=== PATIENT | male | born 2000 | race Caucasian/White ===

== ENCOUNTER 2023-09-21 20:46 | Emergency (ER) | payer OTHER ==
--- NOTE | 2023-09-21 21:19 | ED Physician Documentation ---
PD HPI HEADACHE - Stated complaint Stated Complaint: HEAD PRESSURE/BLURRY VISION - Chief complaint Chief Complaint: General - History obtained from History obtained from: Patient - Additional information Additional information: HPI from patient. Patient complains of approximately 2 weeks of waxing and waning bilateral headache. At times, this has been associated with blurry vision (bilateral). He denies nausea, vomiting. He has not had headaches like this before. He denies any injury. There is a partial component of phonophobia but denies photophobia. He has taken Tylenol and ibuprofen with intermittent/transient improvement. He has not seen his PCP for these headaches. Denies fever. Denies weakness, numbness. Review of Systems Constitutional: denies: Fever, Chills, Sweats Eyes: reports: Decreased vision (intermittent blurry vision). denies: Loss of vision Musculoskeletal: denies: Neck pain Neurologic: reports: Headache. denies: Generalized weakness, Focal weakness, Numbness, Head injury PD PAST MEDICAL HISTORY - Past Medical History Past Medical History: No Cardiovascular: None Respiratory: None Neuro: None Endocrine/Autoimmune: None GI: None : None HEENT: None Psych: None Musculoskeletal: None Derm: None - Past Surgical History Past Surgical History: No - Allergies Allergies/Adverse Reactions: Allergies Allergy/AdvReac Type Severity Reaction Status Date / Time No Known Drug Allergies Allergy Verified 09/21/23 20:50 - Social History Does the pt smoke?: No Smoking Status: Never smoker Does the pt drink ETOH?: No Does the pt have substance abuse?: No - Immunizations Immunizations are current?: Yes - POLST Patient has POLST: No PD ED PE NORMAL - Vitals Vital signs reviewed: Yes - General General: Alert and oriented X 3, No acute distress, Well developed/nourished - HEENT HEENT: Atraumatic, PERRL, EOMI - Neck Neck: Supple, no meningeal sign - Cardiac Cardiac: RRR, No murmur - Respiratory Respiratory: No respiratory distress, Clear bilaterally - Neuro Neuro: Alert and oriented X 3, 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 He is in NAD throughout ED stay. No "red flag" signs/symptoms (such as fever, weakness, numbness, AMS). Further emergent testing is not indicated at this time. Results of CTH d/w patient. I advised him to follow up with PCP for reevaluation. Return precautions are discussed. We discussed options for analgesia; he is given 100mg tramadol prior to d/c but declines Rx. Patient is being driven home by friend. Departure - Departure Disposition: Home, Self Care Clinical Impression: Headache Qualifiers: Headache type: unspecified Headache chronicity pattern: acute headache Intractability: not intractable Qualified Code(s): R51.9 - Headache, unspecified Condition: Good Instructions: ED Cephalgia Unspecified Follow-Up: NICHOLAS Craft [Provider Group] Comments: The CT scan of your head was normal; there is no evidence of a mass or bleeding. The cause of your headaches remains unclear at this time. Follow-up with your primary care provider, next available appointment, for reevaluation. You might benefit from further testing, particularly if your headaches persist or are reoccurring. Prior to discharge from the emergency department, you were given 2 tablets of tramadol. This is an opioid/narcotic pain medication, although it is milder than most other such medications. Do not drive for a minimum of 6 hours after taking this medication, and then only drive if you feel mentally clear. Forms: PCP List Discharge Date/Time: 09/22/23 01:28
[2023-09-21 22:48] VITALS: BP 150/82; O2SAT 97
--- NOTE | 2023-09-21 23:58 | CT Report ---
PROCEDURE: HEAD WO INDICATIONS: headache TECHNIQUE: Noncontrast 4.5 mm thick angled axial sections acquired from the foramen magnum to the vertex. For r adiation dose reduction, the following was used: automated exposure control, adjustment of mA and/or kV according to patient size. COMPARISON: None. FINDINGS: Image quality: Excellent. CSF spaces: Basal cisterns are patent. No extra-axial fluid collections. Ventricles are normal in size and shape. Brain: No midline shift. No intracranial masses or hemorrhage. Taylor-white matter interface is norm al. Skull and face: Calvarium and visualized facial bones are intact, without suspicious lesions. Sinuses: Visualized sinuses and mastoids are clear. IMPRESSION: No acute intracranial pathology. Reviewed by: Khari Gracia on 09/21/2023 11:57 PM [facility] Approved by: Khari Gracia on 09/21/2023 11:57 PM [facility] Station ID: [id number]
[2023-09-22] MEDS ORDERED: traMADol 50 MG TABLET PO STA (01:02)
== END 2023-09-22 01:28 | disposition home or self-care (01) ==
LOC: ED 20:46
DX: R51.9 Headache, unspecified (principal)
CPT/HCPCS: 70450; 99282; 99284; A9270